=== PATIENT | female | born 1970 | race Caucasian/White ===

== ENCOUNTER 2016-03-24 17:08 | Emergency (ER) | payer BC ==
[2016-03-24 19:36] VITALS: BP 148/80
--- NOTE | 2016-03-24 19:53 | UC ---
Back Pain HPI - HPI Summary HPI Summary: 45 yo female with left subscapular pain x 4 days sometimes increases with deep breath no increased pain with use of left arm seems worse at night a little weak and dizzy no URI symptoms - History of Current Complaint Chief Complaint: UCUpperExtremity Stated Complaint: LEFT SHOULDER PAIN Time Seen by Provider: 03/24/16 19:40 Hx Obtained From: Patient Hx Last Menstrual Period: end of Jaunuary Onset/Duration: Sudden Onset, Lasting Days Timing: Constant - waxes and wanes Severity Initially: Mild Severity Currently: Mild Pain Intensity: 4 Pain Scale Used: 0-10 Numeric Back Pain: Is Discrete @ Character: Aching Aggravating: Nothing Alleviating: Nothing Associated Signs And Symptoms: Negative: Swelling, Redness, Bruising, Fever, Weakness, Numbness, Tingling, Abdominal Pain, Flank Pain, Bladder Incontinence, Bowel Incontinence, Weight Loss, Pain with Weight Bearing - Allergies/Home Medications Allergies/Adverse Reactions: Allergies Allergy/AdvReac Type Severity Reaction Status Date / Time No Known Allergies Allergy Verified 03/24/16 19:29 Home Medications: Home Medications Acetaminophen 500 mg PO ONCE PRN 03/24/16 [History Confirmed 03/24/16] PMH/Surg Hx/FS Hx/Imm Hx Previously Healthy: Yes - Surgical History Surgical History: Yes Surgery Procedure, Year, and Place: R elbow - Family History Known Family History: Positive: Cardiac Disease, Hypertension - Social History Alcohol Use: None Substance Use Type: None Smoking Status (MU): Former Smoker When Did the Patient Quit Smoking/Using Tobacco: 3 months ago - Immunization History Most Recent Influenza Vaccination: 2016 Review of Systems Constitutional: Fatigue - weak and dizzy too Skin: Negative Eyes: Negative ENT: Negative Respiratory: Negative Cardiovascular: Negative Gastrointestinal: Negative Genitourinary: Negative Motor: Negative Neurovascular: Negative Musculoskeletal: Negative Neurological: Negative Psychological: Negative All Other Systems Reviewed And Are Negative: Yes Physical Exam Triage Information Reviewed: Yes Appearance: Well-Appearing, No Pain Distress, Well-Nourished Vital Signs: Initial Vital Signs Temp 99.2 F 03/24/16 19:30 Pulse 76 03/24/16 19:30 Resp 18 03/24/16 19:30 BP 148/80 03/24/16 19:30 Pulse Ox 100 03/24/16 19:30 Vital Signs Reviewed: Yes Eyes: Positive: Conjunctiva Clear ENT: Positive: Hearing grossly normal, Nasal congestion, Nasal drainage. Negative: Tonsillar exudate, Trismus, Muffled/hoarse voice Neck: Positive: Supple, Nontender Respiratory: Positive: Chest non-tender, Lungs clear, Normal breath sounds, No respiratory distress Cardiovascular: Positive: RRR, No Murmur, Pulses Normal Abdomen Description: Positive: No Organomegaly, Soft. Negative: CVA Tenderness (R), CVA Tenderness (L) Bowel Sounds: Positive: Present Musculoskeletal: Positive: ROM Intact, No Edema Neurological: Positive: Alert Psychological Exam: Normal Skin Exam: Normal Back Pain Course/Dx - Course Course Of Treatment: EKG and CXR results reviewed with patient. advised to recheck with her MD early in the week if not better. recheck in ER or here for new or worsening symptoms - Differential Dx/Diagnosis Provider Diagnoses: left scapular pain of uncertain cause Discharge - Discharge Plan Condition: Stable Disposition: HOME Prescriptions: Ibuprofen TAB* [Motrin TAB*] 600 mg PO QID PRN #40 tab PRN Reason: Pain Additional Instructions: your EKG and Chest XR were normal I am unsure of the cause of your left scapular pain If not better by Thursday I suggest you see your MD Images Front/Back of Body, Lg ([place]): 1 - pain here
--- NOTE | 2016-03-24 20:16 | RAD ---
HISTORY: Left subscapular pain, shoulder blade pain COMPARISONS: None VIEWS: 2: Frontal dual-energy and lateral views of the chest. FINDINGS: CARDIOMEDIASTINAL SILHOUETTE: The cardiomediastinal silhouette is normal. JOEL: The joel are normal. PLEURA: The costophrenic angles are sharp. No pleural abnormalities are noted. LUNG PARENCHYMA: The lungs are clear. ABDOMEN: The upper abdomen is clear. There is no subphrenic gas. BONES AND SOFT TISSUES: No bone or soft tissue abnormalities are noted. OTHER: None. IMPRESSION: NO ACTIVE CARDIOPULMONARY DISEASE.
[2016-03-24] MEDS ORDERED: Ibuprofen TAB* 600 MG PO ONE (20:29)
== END 2016-03-24 20:43 | disposition home or self-care (01) ==
LOC: UCCORT 17:08
DX: M25.512 Pain in left shoulder (principal); R53.83 Other fatigue; R42 Dizziness and giddiness; Z87.891 Personal history of nicotine dependence
CPT/HCPCS: 71020; 93005; 99211; A9270-GY; G0463